=== PATIENT | female | born 1955 | race Caucasian/White ===

== ENCOUNTER 2018-07-07 06:14 | Inpatient (IN) ==
--- NOTE | 2018-06-17 09:25 | ANES ---
Anesthesia Pre Procedure Eval HOME MEDICATIONS Acetaminophen [Tylenol] 650 mg PO QID PRN #0 tab 12/25/15 [Last Taken Unknown] cholecalciferol (vitamin D3) 2,000 unit capsule 2,000 unit PO DAILY 11/05/17 [Last Taken Unknown] sumatriptan 100 mg tablet 100 mg PO DAILY PRN #9 tab 11/10/17 [Last Taken Unknown] trazodone 100 mg tablet 200 mg PO HS #60 tab 04/13/18 [Last Taken Unknown] diltiazem ER 240 mg capsule,24 hr,extended release 240 mg PO DAILY 04/22/18 [Last Taken Unknown] tramadol 50 mg tablet See Rx Instructions PO Q6H PRN #90 tab 04/27/18 [Last Taken Unknown] enalapril 10 mg-hydrochlorothiazide 25 mg tablet 1 tab PO DAILY #90 tab 05/07/18 [Last Taken Unknown] triamcinolone acetonide 0.5 % topical ointment 1 applic TP DAILY #15 g 05/20/18 [Last Taken Unknown] tramadol 50 mg tablet See Rx Instructions PO Q6H PRN #90 tab 06/01/18 [Last Taken Unknown] Estrogens, Conjugated [Premarin] 1 gm VAGINAL .COM 06/17/18 [Last Taken Unknown] Allergies/Adverse Reactions: Allergies Allergy/AdvReac Type Severity Reaction Status Date / Time bacitracin zinc AdvReac Mild rash Verified 06/17/18 08:24 [From Triple Antibiotic] Metronidazole HCl AdvReac Mild Nausea Verified 06/17/18 08:24 [From Flagyl] Troleandomycin [From Tank] AdvReac Mild rash Verified 06/17/18 08:24 - Planned Procedure Planned Procedure: Left Total Knee Arthroplasty Medication List Reviewed:: Yes Allergies Verified: Yes Medical History (Updated 06/01/18 @ 10:58 by Lavon Watson MD) Abdominal pain Onset Date: ~11/14/11 Bunion Onset Date: ~01/01/13 and hammertoe formation, right foot Cough Onset Date: ~02/06/12 Depression Onset Date: ~06/18/13 Deviated nasal septum Onset Date: Unknown Diverticulitis Onset Date: Unknown Fibromyalgia Onset Date: Unknown GERD (gastroesophageal reflux disease) Onset Date: Unknown Hematuria Onset Date: ~01/03/14 Hypertension Onset Date: Unknown Low back pain Onset Date: ~03/13/11 chronic Malignant neoplasm of thyroid gland Onset Date: Unknown removal Migraine Onset Date: Unknown Otitis media Onset Date: ~09/10/12 Rib fracture Onset Date: ~08/04/14 Sinusitis Onset Date: ~01/15/12 Small vessel disease Onset Date: ~02/2018 heart- sees dr at [facility] Surgical History (Updated 11/04/17 @ 10:58 by Nisha Morris RN) H/O adenoidectomy Onset Date: ~1959 H/O arthroscopic knee surgery Onset Date: Unknown left H/O dilation and curettage Onset Date: ~12/07/08 12/07/2008, 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 No pathologic findings H/O foot surgery Onset Date: ~2011 bilateral bunion repair H/O laparoscopy Onset Date: ~12/07/08 H/O nasal septoplasty Onset Date: ~2005 History of cholecystectomy Onset Date: ~2000 History of colonoscopy Onset Date: ~2012 History of fundoplication Onset Date: ~2000 History of hysteroscopy Onset Date: ~12/07/08 12/07/2008, 11/01/2015 History of repair of hiatal hernia Onset Date: ~2000 History of salpingo-oophorectomy Onset Date: ~12/07/08 left History of tonsillectomy Onset Date: ~1959 Family History (Updated 11/04/17 @ 11:00 by Nisha Morris RN) Father Hypertension Cancer throat Mother CVA (cerebral vascular accident) Hypertension - Family Anesthesia History Family History:: no untoward family reactions to anesthesia, no familial bleeding tendencies, no family history of clotting disorders, no family history of premature - Airway/Neck/Teeth Teeth Condition: none Denture Type: Full upper, Full lower Neck Exam: full range of motion Mallampatti Score: 2 Thyromental (T-M) distance: > 6 cm Mandibulo Hyoid distance: > 3 cm - Respiratory Respiratory Physical: lungs clear Smoking Status: Never smoker Sleep Apnea currently treated: No Sleep Apnea by current assessment: No - Cardiovascular Cardiac History: hypertension Tolerate Activity: Fair Heart Sounds: S1 & S2, Regular - Anesthesia Assessment and Plan ASA Class: PS, II Anesthesia Type Plan: Block - adductor canal block for post op pain relief, Spinal
[~2018-07-07 06:14] MED LIST: ROPIVACAINE HCL/PF 100 MG, EPINEPHrine 0.2 MG, KETOROLAC TROMETHAMINE 30 MG in NORMAL S... IJ PRN; TRANEXAMIC ACID 1,000 MG in NORMAL SALINE 100 ML IV PRN; VANCOMYCIN HCL 1 GM in DEXTROSE 5 % IN WATER 250 ML IV PRN; ceFAZolin SODIUM 1 GM VIAL IV PRN
[2018-07-07] MEDS: RINGER'S SOLUTION,LACTATED 1,000 ML IV PRN ×3 (07:17→10:15)
[2018-07-07] MEDS ORDERED: ONDANSETRON HCL/PF 2 MG/ML VIAL IV PRN (10:00)
[2018-07-07] MEDS ORDERED: MAGNESIUM HYDROXIDE 30 ML UDC PO PRN (10:00)
[2018-07-07] MEDS ORDERED: oxyCODONE HCL/ACETAMINOPHEN 1 TAB TABLET PO PRN (10:00)
[2018-07-07] MEDS ORDERED: ACETAMINOPHEN 500 MG TABLET PO PRN (10:00)
[2018-07-07] MEDS ORDERED: MAG HYDROX/ALUMINUM HYD/SIMETH 30 ML UDC PO PRN (10:00)
[2018-07-07] MEDS ORDERED: diphenhydrAMINE HCL 50 MG/ML VIAL IV PRN (10:00)
[2018-07-07] MEDS ORDERED: SUMAtriptan SUCCINATE 50 MG TABLET PO PRN (10:05)
--- NOTE | 2018-07-07 10:10 | OR ---
Operative Report - Dictated Report Narrative: Date: 07/07/2018 Preoperative diagnosis: Left knee arthritis Postoperative diagnosis: Left knee arthritis Procedure: Left total knee arthroplasty. Surgeon: Lavon Watson M.D. Belt Back Operator: Isiah Nickerson PA-C Anesthesia: Spinal with regional block and local periarticular joint injection. Complications: None Specimens: Resected bone Estimated blood loss: Minimal. Tourniquet time: 70 Minutes at 300 millimeters of mercury. Retained implants: Depuy Attune size 6 standard lugged cemented posterior stabilized femoral component. Size 6 rotating cemented tibial platform. 6 by 7 millimeter posterior stabilized cross-linked tibial insert. 38 millimeter medialized patella button. Indications: Fatemeh is a 63-year-old female community ambulator. This patient was followed in my clinic for period of time with significant complaints of left knee pain consistent with arthritic changes. They had failed conservative measures including but not limited to activity modification, passage of time, medications, and other conservative measures. Patient wished to proceed with surgical treatment. The risks, benefits, and alternatives were discussed in clinic. The risks of , blood clots, bleeding, infection, nerve/tendon blood vessel/ injury, malposition of components, intraoperative fracture, postoperative limited range of motion, persistent pain, failure of components, and need for additional procedures. Patient wished to proceed consent was obtained after answering all questions. Procedure: After marking the correct extremity on the floor, the patient was taken to the operating room. A timeout was performed. IV antibiotics consis ting of 1 g of vancomycin and 1 g of Ancef were administered prior to the procedure. A regional followed by spinal anesthetic was induced by anesthesia. on the operative table with all bony prominences well-padded. May catheter was placed and a bump was placed under the operative side buttock. SCDs and ALETA hose were utilized on the nonoperative leg. A well-padded tourniquet was applied to the operative thigh. The operative leg was then pre-scrubbed with alcohol prepped and draped in a standard sterile fashion. After exsanguinating the extremity with an Esmarch bandage, the tourniquet was inflated. After marking out the anterior knee for standard incision centered over the patella, the skin was incised and dissected down to the joint retinaculum. The joint retinaculum was marked out as well as the horizontal axis of the patella, and a standard medial parapatellar arthrotomy was then made. The most proximal aspect of the quadriceps tendon and the patella tendon insertion were protected from release. A partial synovectomy was performed as well as a resection of the infrapatellar fat pad. The distal femoral fat pad proximal to the trochlea was also resected using cautery. The soft tissues were elevated off the medial aspect of the proximal tibia using a Cesar elevator ensuring that we did not transect the medial collateral ligament. Upon initial evaluation range of mo tion was approximately 0 degrees to 125 degrees of flexion. There were signs of advanced arthrosis in all 3 joint spaces. There were large marginal osteophytes which were removed with a rongeur. The knee was hyperflexed and the patella was tucked laterally. Protecting the surrounding soft tissues with Homans, an entry drill was placed down the femoral canal using Whitesides line for guidance into the entry point. The intramedullary femoral alignment naina was utilized in order to cut the distal femur in 5 of valgus resecting 10 millimeters of bone. Next the distal femur was sized to a size 6. An anterior referencing guide was utilized to place the distal femoral cutting block in 7 of external rotation due to notable lateral femoral condyle hypoplasia. This was pinned into place. The rotation was confirmed both visually and based on anatomic landmarks. The 4 in 1 cutting jig of the appropriate size was utilized in order to make all bony cuts. Retractors were utilized in order to protect surrounding soft tissues. This cut did not result in any excessive notching. We then cut the box centered over the distal femur. This allowed for resection of the anterior and posterior cruciate ligaments. I then turned my attention to the preparation of the tibia. Using an extra medullary tibial alignment naina, 5 millimeters of bone was resected off the medial articular surface. This was made perpendicular to the mechanical axis of the joint with the alignment naina centered over the ankle mortise. The alignment naina was parallel to the mechanical axis, centered over the medial one third of the tibial tubercle, paralleling the anterior surface of the tibia. We then turned our attention to the remaining meniscus and soft tissues. These were removed while protecting the surrounding ligaments and soft tissues. The marginal osteophytes off the anterior, posterior, medial, lateral aspects of the femur and tibia were removed. The tibia was sized out to a size 6. Next the tibia was drilled and punched in an externally rotated position as confirmed with a drop naina. Next the trial femur and a series of tibial inserts were utilized in order to allow for full extension and maximal flexion. It was found that a 7 millimeter insert gave the best range of motion and stability at multiple flexion points as well as at full extension there was less than 2 mm of gapping both medially and laterally. There is minimal anterior translation with the knee at 90 of flexion and no signs of being able to dislocate the knee. The patella was then prepared. The initial thickness was 24 millimeters. This was reamed down to 14 millimeters parallel to the anterior surface of the patella. It was sized out to a size 38 mm medialized patella button. This was then drilled and trialed. Without any medial restraint the patella tracked appropriately and did not sublux or dislocate. At this point, it was felt these were the appropriate sized implants and all trials were removed. The standard periarticular joint injection consisting of ropivacaine, Toradol, and epinephrine were injected into the periarticular joint tissues. The bony surfaces were thoroughly irrigated with a pulsatile-suction saline irrigation device. A bone plug from the prior resected anterior chamfer cut was placed into the drill hole at the distal femur. The bony surfaces were then dried in preparation for placement of the implants. The cement was vacuum mixed per the combiner's instructions. The cement was placed on the dry bony surfaces and posterior aspect of the implants. The implants were impacted into place, removing all extruded cement. At this point anesthesia administered tranexamic acid per protocol intravenously. The knee was placed in extension with axial loading with the trial insert while the cement cured. A dilute 0.35% betadyne-saline solution was used to irrigate the knee and allowed to sit in the knee while the cement cured. Once the cement cured, all remaining extruded cement was removed. The knee was placed through a range of motion with the trial insert to ensure appropriate range of motion and stability. Final range of motion was approximately 0 to 130 degrees. The knee was again thoroughly irrigated with pulsatile saline lavage. The final polyethylene insert was then impacted into place ensuring no retained soft tissues. The remaining periarticular joint injection was injected. The knee was then packed with lap sponges which were soaked with dilute betadyne solution and the tourniquet was let down. Pressure was held for approximately 2 minutes and then hemostasis was obtained using electrocautery to coagulate any bleeding vessels. The knee was then placed over a triangle and the arthrotomy was closed with interrupted #1 Vicryl after thoroughly irrigating the joint. The deep and subcutaneous tissues were closed with interrupted oh and 3-0 Vicryl respectively. Skin was closed with a running subcutaneous 3-0 Monocryl and jay. Xeroform, 4 x 4's, ABD, Sof-Rol, and a full leg Dale wrap were applied. All sponge, needle, blade, and instrument counts were correct prior to closing the wounds. Postoperative condition: The patient was awoken and transferred to the postanesthesia care unit in stable condition. Plan is to be admitted to the inpatient medical/surgical floor postoperatively for 24 hours of IV antibiotics, physical therapy, occupational therapy, and medical co-management. Patient will be weightbearing as tolerated with range of motion as tolerated. DVT prophylaxis will be with SCDs, ALETA hose, and pharmacological anticoagulation. Anticipated hospital stay is approximately 2-4 days.
[2018-07-07] MEDS: NORMAL SALINE 1,000 ML IV PRN ×3 (11:08→20:46)
--- NOTE | 2018-07-07 12:04 | ANES ---
Post Anesthesia Discharge - Transfer of Care Transfer of Care handoff given to nurse: Yes - Discharge from PACU Discharge from PACU when meets criteria: Yes
--- NOTE | 2018-07-07 12:04 | ANES ---
Post Anesthesia Assessment - Vital Signs Vitals: Last Vital Signs Temp 36.2 C 07/07/18 11:20 Pulse 58 L 07/07/18 11:49 Resp 16 07/07/18 11:49 BP 96/58 07/07/18 11:49 Pulse Ox 100 07/07/18 11:49 Airway Patency: Normal - Mental Status Level Of Consciousness: Awake - Pain Level Pain Score: 0 - N/V Assessment Nausea/Vomiting Presence: None Dehydration:: No
--- NOTE | 2018-07-07 12:18 | ANES ---
Anesthesia Procedure Note Procedure Note: ANESTHESIA PROCEDURE NOTE Date of procedure: 07/07/2018. Time of procedure: 07 50. Performed by: Ruben Lucero CRNA Block Sealer: Ragini Osuna RN . Preprocedure diagnosis: Left knee DJD. Desire for postoperative analgesia. Post procedure diagnosis: Same. Procedure: Ultrasound-guided left adductor canal block Indications: Postoperative analgesia. Findings: Patient was brought to operating room #4 and placed in a supine position. Patient was sedated. Patient's left inner thigh was prepped with ChloraPrep. Ultrasound was utilized to identify the adductor canal. A 20-gauge 4 inch regional block needle was advanced under ultrasound guidance until tip of needle was positioned in the adductor canal. 25 mL of 0.25% Marcaine with epinephrine 1-200,000 was injected with adequate spread of local anesthesia noted around the saphenous nerve. Regional block needle was removed intact. EBL: Minimal. Fluids: N/A. Specimen: N/A. Post procedure condition: The patient tolerated the procedure well. No complications were noted. Thank you for this consultation Ruben Lucero CRNA
[2018-07-07] MEDS: oxyCODONE HCL/ACETAMINOPHEN 1 TAB TABLET PO PRN ×3 (14:02→22:42)
[2018-07-07] MEDS: ceFAZolin SODIUM 2 GM in DEXTROSE 5 % IN WATER 50 ML IV SCH ×4 (14:06→22:35)
[2018-07-07] MEDS: MORPHINE SULFATE 2 MG/ML DISP.SYRIN IV PRN (16:13)
[2018-07-07] MEDS: SENNOSIDES/DOCUSATE SODIUM 1 TAB TABLET PO SCH (20:47)
[2018-07-07] MEDS: traZODone HCL 50 MG TABLET PO SCH (20:47)
[2018-07-08] MEDS: MORPHINE SULFATE 2 MG/ML DISP.SYRIN IV PRN (00:30)
[2018-07-08] MEDS: oxyCODONE HCL/ACETAMINOPHEN 1 TAB TABLET PO PRN ×5 (02:40→23:29)
[2018-07-08] MEDS: ceFAZolin SODIUM 2 GM in DEXTROSE 5 % IN WATER 50 ML IV SCH ×2 (05:33)
[2018-07-08 05:37] LABS: Hematocrit 32.4 % (37.0-47.0); Hemoglobin 10.5 gm/dL (12.5-16.0); Mean Cell Volume 98.2 fl (78-100); Mean Corpuscular Hemoglobin 31.8 pg (27-31); Mean Corpuscular Hgb Conc 32.4 g/dl (32-36); Mean Platelet Volume 8.9 fl (8-12.5); Platelet Count 198 K/mm3 (150-450); Red Cell Distribution Width 14.1 % (11.5-14.0); White Blood Count 7.4 K/mm3 (4.0-10.5)
[2018-07-08 05:48] LABS: Anion Gap 9.2 mmol/L (6.8-13.8); BUN/Creatinine Ratio 12.9 (9.0-21.6); Calcium * 8.5 mg/dL (7.9-10.9); Carbon Dioxide 28.6 mmol/L (24-32.6); Estimated Creat Clear 56.8; Potassium 3.8 mmol/L (3.4-4.6)
[2018-07-08] MEDS: ENOXAPARIN SODIUM 40 MG/0.4 ML SYRG SC SCH (09:17)
[2018-07-08] MEDS: ENALAPRIL MALEATE 5 MG TABLET PO SCH (09:17)
[2018-07-08] MEDS: HYDROCHLOROTHIAZIDE 25 MG TABLET PO SCH (09:18)
[2018-07-08] MEDS: DILTIAZEM HCL 240 MG CAP.SR.24H PO SCH (09:18)
[2018-07-08] MEDS: CHOLECALCIFEROL 1,000 UNIT CAPSULE PO SCH (09:18)
--- NOTE | 2018-07-08 13:08 | PN ---
Subjective - Date and Time Seen Date: 07/08/18 Time: 07:30 Subjective Narrative: Patient reports no acute events. She notes she still has moderate pain, rates it a 7/10. She does note that her Percocet improves the pain. She notes she has been up out bed to chair at this point. She is tolerating p.o. diet without any other acute symptoms. Objective - Vitals Vitals: Last Vital Signs Temp 36.8 C 07/08/18 10:47 Pulse 83 07/08/18 10:47 Resp 16 07/08/18 10:47 BP 125/53 07/08/18 10:47 Pulse Ox 95 07/08/18 10:47 - Abnormal Lab Findings Abnormal Lab Findings: Abnormal Lab Results 07/08/18 07/08/18 Range/Units 05:33 05:33 RBC 3.30 L (4.2-5.4) M/mm3 Hgb 10.5 L (12.5-16.0) gm/dL Hct 32.4 L (37.0-47.0) % MCH 31.8 H (27-31) pg RDW 14.1 H (11.5-14.0) % Random Glucose 111 H (70-110) mg/dL - Exam Constitutional: Present: Alert, Cooperative, No distress Respiratory: Present: no respiratory distress Extremity: Present: other - LLE--> bandages clean/dry/intact, distal capillary refill brisk, sensation intact light touch, diffuse left knee tenderness, 5/5 plantarflexion and dorsiflexion of the ankle Eye contact: Present: cooperative Thoughts: Present: normal thought pattern Cauti Physician Documentation - Urinary Catheter Management Urethral (May) Date of Insertion: 07/07/18 Time of Insertion: 08:10 Date of Removal: 07/08/18 Time of Removal: 07:30 Assessment/Plan Plan Narrative: -63 y/o female postop day 1 status post left total knee arthroplasty -weightbearing as tolerated, assistive device PRN -PT/OT advance as tolerated -P.o. pain medication PRN -P.o. diet as tolerated -Hemoglobin 10.5 continue to monitor -DVT prophylaxis Lovenox, SCDs in bed, ALETA hose knee-high -Disposition: Once all PT goals met, return to p.o. diet, p.o. pain medication with pain well-controlled are met patient will be discharged to the [facility] nursing facility for further care - Problems/Diagnosis (1) Status post total left knee replacement Problem: Acute
[2018-07-08] MEDS: traZODone HCL 50 MG TABLET PO SCH (20:47)
[2018-07-08] MEDS: SENNOSIDES/DOCUSATE SODIUM 1 TAB TABLET PO SCH (20:47)
[2018-07-09] MEDS: oxyCODONE HCL/ACETAMINOPHEN 1 TAB TABLET PO PRN ×5 (04:13→22:52)
[2018-07-09 05:13] LABS: Hematocrit 31.5 % (37.0-47.0); Hemoglobin 10.1 gm/dL (12.5-16.0); Mean Corpuscular Hemoglobin 32.1 pg (27-31); Mean Corpuscular Hgb Conc 32.1 g/dl (32-36); Mean Platelet Volume 8.8 fl (8-12.5); Platelet Count 187 K/mm3 (150-450); Red Blood Count 3.15 M/mm3 (4.2-5.4); Red Cell Distribution Width 14.4 % (11.5-14.0); White Blood Count 10.5 K/mm3 (4.0-10.5)
[2018-07-09 05:32] LABS: Anion Gap 13.1 mmol/L (6.8-13.8); BUN/Creatinine Ratio 9.3 (9.0-21.6); Calcium * 8.7 mg/dL (7.9-10.9); Carbon Dioxide 25.5 mmol/L (24-32.6); Estimated Creat Clear 48.9; Potassium 3.6 mmol/L (3.4-4.6)
[2018-07-09] MEDS: DILTIAZEM HCL 240 MG CAP.SR.24H PO SCH (08:59)
[2018-07-09] MEDS: HYDROCHLOROTHIAZIDE 25 MG TABLET PO SCH (08:59)
[2018-07-09] MEDS: ENOXAPARIN SODIUM 40 MG/0.4 ML SYRG SC SCH (08:59)
[2018-07-09] MEDS: CHOLECALCIFEROL 1,000 UNIT CAPSULE PO SCH (08:59)
[2018-07-09] MEDS: ENALAPRIL MALEATE 5 MG TABLET PO SCH (09:00)
--- NOTE | 2018-07-09 10:04 | PN ---
Subjective - Date and Time Seen Date: 07/09/18 Time: 10:01 Subjective Narrative: No events overnight. Rates pain 6/10 this morning. Making progress with PT. Objective - Vitals Vitals: Last Vital Signs Temp 37.4 C 07/09/18 06:31 Pulse 94 07/09/18 09:00 Resp 15 07/09/18 06:31 BP 106/42 07/09/18 09:00 Pulse Ox 94 07/09/18 06:31 - Abnormal Lab Findings Abnormal Lab Findings: Abnormal Lab Results 07/09/18 07/09/18 Range/Units 05:10 05:10 RBC 3.15 L (4.2-5.4) M/mm3 Hgb 10.1 L (12.5-16.0) gm/dL Hct 31.5 L (37.0-47.0) % MCH 32.1 H (27-31) pg RDW 14.4 H (11.5-14.0) % Plasma Sodium 143 H (130-142) mmol/L Chloride 107 H (97-106) mmol/L Est GFR (Non-Af Amer) 54 L (60-130) mL/min Random Glucose 138 H (70-110) mg/dL - Exam Exam Narrative: Gen: A&Ox3, NAD CV: RRR Resp: breathing nonlabored on RA MSK: Prineo dressing intact, reinforced with more dermabond today, no erythema or drainage, SILT, distal cap refill brisk Cauti Physician Documentation - Urinary Catheter Management Urethral (May) Date of Insertion: 07/07/18 Time of Insertion: 08:10 Date of Removal: 07/08/18 Time of Removal: 07:30 Assessment/Plan Plan Narrative: 63 y/o female status post left total knee arthroplasty, POD #2. -weightbearing as tolerated, assistive device PRN -PT/OT advance as tolerated -P.o. pain medication PRN -P.o. diet as tolerated -Hemoglobin 10.1 continue to monitor -DVT prophylaxis Lovenox, SCDs in bed, ALETA hose thigh-high -Disposition: Plan for discharge to the [facility] tomorrow
[2018-07-09] MEDS: SENNOSIDES/DOCUSATE SODIUM 1 TAB TABLET PO SCH (20:29)
[2018-07-09] MEDS: traZODone HCL 50 MG TABLET PO SCH (20:30)
[2018-07-10] MEDS: oxyCODONE HCL/ACETAMINOPHEN 1 TAB TABLET PO PRN ×2 (04:23→08:35)
[2018-07-10] MEDS: CHOLECALCIFEROL 1,000 UNIT CAPSULE PO SCH (08:02)
[2018-07-10] MEDS: DILTIAZEM HCL 240 MG CAP.SR.24H PO SCH (08:02)
[2018-07-10] MEDS: HYDROCHLOROTHIAZIDE 25 MG TABLET PO SCH (08:02)
[2018-07-10] MEDS: ENALAPRIL MALEATE 5 MG TABLET PO SCH (08:02)
[2018-07-10] MEDS: ENOXAPARIN SODIUM 40 MG/0.4 ML SYRG SC SCH (08:03)
--- NOTE | 2018-07-10 09:52 | DS ---
Description of Stay: Fatemeh was taken to the OR on 07/07/16 for left total knee arthroplasty. She tolerated the procedure well and there were no complications. She was admitted to the floor postoperatively. Vitals and labs were followed and remained stable. Pain was controlled with oral and IV medications. She resumed a normal diet and normal bladder and bowel function. She made appropriate gains with PT. She was deemed stable for discharge to a [facility] facility on 07/10/18. Procedures Performed: see notes below List Procedures: Left total knee arthroplasty - 07/07/16 Results and Findings: Lab Pending Results 07/07/18 09:33: Pathology Specimen Spec to path 07/08/18 05:33: WBC 7.4, RBC 3.30 L, Hgb 10.5 L, Hct 32.4 L, MCV 98.2, MCH 31.8 H, MCHC 32.4, RDW 14.1 H, Plt Count 198, MPV 8.9 07/08/18 05:33: Sodium 138, Plasma Sodium 138, Potassium 3.8, Chloride 104, Carbon Dioxide 28.6, Anion Gap 9.2, BUN 12, Creatinine 0.93, Est GFR (Non-Af Amer) 64, BUN/Creatinine Ratio 12.9, Random Glucose 111 H, Calcium 8.5 07/09/18 05:10: WBC 10.5 D, RBC 3.15 L, Hgb 10.1 L, Hct 31.5 L, MCV 100.0, MCH 32.1 H, MCHC 32.1, RDW 14.4 H, Plt Count 187, MPV 8.8 07/09/18 05:10: Sodium 142, Plasma Sodium 143 H, Potassium 3.6, Chloride 107 H, Carbon Dioxide 25.5, Anion Gap 13.1, BUN 10, Creatinine 1.08, Est GFR (Non-Af Amer) 54 L, BUN/Creatinine Ratio 9.3, Random Glucose 138 H, Calcium 8.7 Discharge Location: [facility] [place] Disposition: SNF Condition: Good Discharge Activity: Activity as tolerated Discharge Diet: General/regular food Half-Way Therapy: Physicial Therapy Referrals: Carmela Dyson MD [Primary Care Provider] - Additional Patient Instructions (free text): To [facility] for PT and OT to evaluate and treat,. Follow up Orthopedic office appt. on Friday07/22/18 at 9:00am. Weightbearing as tolerated, assistive device PRN -PT/OT advance as tolerated Orthopedic Discharge Instructions: 1. WBAT, ROM as tolerated. 2. PT for ROM, progressive strengthening and mobility. 3. Oral pain meds. 4. Inspect Prineo mesh dressing twice daily to make sure it remains sealed and there is no wound drainage. If the dressing is peeling up or if there is drainage, please contact the Orthopedic clinic. Patient may shower as long as dressing is intact. 5. DVT ppx: Lovenox for 8 days followed by 325 mg ASA daily for 6 weeks. 6.Dave hose for 6 weeks. 7. Ice Machine as tolerated when sedentary, at least 4 hours a day, no maximum time 8. CPM 0-70 degrees flexion, progress as tolerated up to 110 degrees increasing 10 degree daily as tolerated, use 3 times a day for 1-2 hours at a time, may use longer periods or more often pending patients comfort Prescriptions (Any new or edited meds): Enoxaparin Sodium [Lovenox] 40 mg SQ DAILY #8 ml Enoxaparin Sodium [Lovenox] 40 mg SC Q24H #8 disp.syrin oxyCODONE HCL/ACETAMINOPHEN [Percocet 5 MG/325 MG] 1 - 2 tab PO Q4H PRN #90 tab PRN Reason: Severe Pain (Pain Scale 7-10) Sennosides/Docusate Sodium [Senokot-S] 2 tab PO DAILY #30 tab Complete Home Medications List: Complete Home Medication List: Acetaminophen [Tylenol] 650 mg PO QID PRN #0 tab 12/25/15 cholecalciferol (vitamin D3) 2,000 unit capsule 2,000 unit PO DAILY 11/05/17 sumatriptan 100 mg tablet 100 mg PO DAILY PRN #9 tab 11/10/17 trazodone 100 mg tablet 200 mg PO HS #60 tab 04/13/18 diltiazem ER 240 mg capsule,24 hr,extended release 240 mg PO DAILY 04/22/18 enalapril 10 mg-hydrochlorothiazide 25 mg tablet 1 tab PO DAILY #90 tab 05/07/18 triamcinolone acetonide 0.5 % topical ointment 1 applic TP DAILY #15 g 05/20/18 Estrogens, Conjugated [Premarin] 1 gm VAGINAL .COM 06/17/18 mupirocin 2 % topical ointment See Rx Instructions TP .COMPLEX #15 g 06/18/18 Acetaminophen [Tylenol] 1,000 mg PO Q6H PRN tab 07/10/18 Enalapril Maleate [Vasotec] 10 mg PO DAILY tab 07/10/18 Enoxaparin Sodium [Lovenox] 40 mg SC Q24H #8 disp.syrin 07/10/18 Enoxaparin Sodium [Lovenox] 40 mg SQ DAILY #8 ml 07/10/18 Hydrochlorothiazide [Hydrodiuril] 25 mg PO DAILY tab 07/10/18 Sennosides/Docusate Sodium [Senokot-S] 2 tab PO DAILY #30 tab 07/10/18 oxyCODONE HCL/ACETAMINOPHEN [Percocet 5 MG/325 MG] 1 - 2 tab PO Q4H PRN #90 tab 07/10/18
[2018-07-10 10:26] VITALS: BP 147/67
== END 2018-07-10 10:35 | DRG 470 ==
LOC: MS 06:14 → EDSTATUS 08:00
PROVIDERS: ADMIT Orthopaedic Surgery; ATTEND Orthopaedic Surgery
CPT/HCPCS: 36415; 73560; 80048; 85027; 88305; 88311; 97110; 97116; 97161; 97165; 97535

== ENCOUNTER 2020-02-07 08:00 | Inpatient (IN) ==
[~2020-02-07 08:00] MED LIST changes: +BUPIVACAINE HCL 50 ML VIAL IJ PRN; +RINGER'S SOLUTION,LACTATED 1,000 ML IV PRN; -ROPIVACAINE HCL/PF 100 MG, EPINEPHrine 0.2 MG, KETOROLAC TROMETHAMINE 30 MG in NORMAL S... IJ PRN; -TRANEXAMIC ACID 1,000 MG in NORMAL SALINE 100 ML IV PRN; -VANCOMYCIN HCL 1 GM in DEXTROSE 5 % IN WATER 250 ML IV PRN; -ceFAZolin SODIUM 1 GM VIAL IV PRN
--- NOTE | 2020-02-07 08:31 | ERNOTE ---
Medical Problem HPI - General Chief Complaint: General Assessment Time Seen by Provider: 02/07/20 08:15 Source: patient Exam Limitations: no limitations - Immun/Allergies/Home Medications Immunizations: IMMUNIZATION HX Immunizations Up to Date Yes History of Influenza Vaccine Yes Hx Pneumococcal Vaccination Yes Allergies/Adverse Reactions: Allergies bacitracin zinc [From Triple Antibiotic] Allergy (Mild, Verified 02/07/20 08:09) rash Troleandomycin [From Tank] Allergy (Mild, Verified 02/07/20 08:09) rash Metronidazole HCl [From Flagyl] Adverse Reaction (Mild, Verified 02/07/20 08:09) Nausea Saccharomyces boulardii [From Florastor] Adverse Reaction (Mild, Verified 02/07/20 08:09) rash Can tolerate yogurt or bacid. Home Medications: HOME MEDICATIONS cholecalciferol (vitamin D3) 50 mcg (2,000 unit) capsule 2,000 unit PO DAILY 11/05/17 [Last Taken Unknown] sumatriptan succinate 100 mg tablet 100 mg PO DAILY PRN #9 tab 11/10/17 [Last Taken Unknown] triamcinolone acetonide 0.5 % topical ointment 1 applic TP DAILY #15 g 05/20/18 [Last Taken Unknown] Estrogens, Conjugated [Premarin] 1 gm VAGINAL .COM 06/17/18 [Last Taken Unknown] Acetaminophen [Tylenol] 1,000 mg PO Q6H PRN tab 07/10/18 [Last Taken Unknown] sennosides 8.6 mg-docusate sodium 50 mg tablet 2 tab PO DAILY PRN tab 01/11/19 [Last Taken Unknown] calcium carbonate 500 mg calcium (1,250 mg) tablet 500 mg PO DAILY 02/22/19 [Last Taken Unknown] traMADol HCL [Ultram] 50 mg PO QID PRN #30 tab 08/06/19 [Last Taken Unknown] albuterol sulfate 90 mcg/actuation aerosol inhaler 2 inh IH Q6H PRN #8.5 g 08/11/19 [Last Taken Unknown] diltiazem HCl 240 mg capsule,24 hr,extended release 240 mg PO DAILY #90 cap 08/23/19 [Last Taken Unknown] fremanezumab-vfrm 225 mg/1.5 mL subcutaneous syringe 225 mg SUBCUT QMONTH 09/21/19 [Last Taken Unknown] misoprostol 100 mcg tablet 100 mcg PO BID #14 tab 10/20/19 [Last Taken 11/04/19 20:00] trazodone 100 mg tablet 200 mg PO HS #60 tab 11/12/19 [Last Taken Unknown] topiramate 100 mg tablet 100 mg PO HS 11/22/19 [Last Taken Unknown] enalapril 10 mg-hydrochlorothiazide 25 mg tablet See Rx Instructions .ROUTE .COMPLEX #90 tab 12/29/19 [Last Taken Unknown] fluconazole 150 mg tablet 150 mg PO Q3D 0 Days #2 tab 01/14/20 [Last Taken Unknown] miconazole nitrate 2 % topical cream 1 applic TP BID #30 g 01/14/20 [Last Taken Unknown] Albuterol Sulfate [Proair Hfa] 2 puff IH Q4H PRN #1 inhaler 01/31/20 [Last Taken Unknown] Amox Tr/Potassium Clavulanate [Augmentin 875-125 Tablet] 875 mg PO Q12H #20 tab 01/31/20 [Last Taken Unknown] solifenacin 5 mg tablet 5 mg PO DAILY 90 Days #90 tab 02/03/20 [Last Taken Unknown] - History of Present History Narrative: Patient states she has had diarrhea for a little bit over a week. She states last week she was diagnosed with bronchitis and UTI and placed on Augmentin. She is concerned she may have C. difficile as she has had a previously. She states she began to have diarrhea the day before she started on the Augmentin. She also believes she is dehydrated and she has a migraine today. Timing: constant Severity: moderate Review of Systems - Review of Systems Constitutional: Present: See HPI, recent illness. Absent: fever EYE: Absent: vision changes ENT: Absent: nose congestion, nasal drainage Respiratory: Absent: shortness of breath, cough Cardiology: Absent: chest pain, palpitations Gastrointestinal/Abdominal: Present: See HPI, diarrhea, constipation - previous to this.. Absent: nausea, vomiting Genitourinary: Absent: frequency, dysuria Musculoskeletal: Absent: back pain, muscle pain Skin: Absent: rash Neurological: Absent: numbness, tingling Endocrine: Absent: excessive sweating Medical History (Last Reviewed 02/07/20 @ 08:30 by Eron Brandon DO) Abdominal pain Onset Date: ~11/14/11 Arthritis Onset Date: Unknown left knee Bunion Onset Date: ~01/01/13 and hammertoe formation, right foot Cough Onset Date: ~02/06/12 Depression Onset Date: ~06/18/13 Deviated nasal septum Onset Date: Unknown Diverticulitis Onset Date: Unknown Fibromyalgia Onset Date: Unknown GERD (gastroesophageal reflux disease) Onset Date: Unknown Hematuria Onset Date: ~01/03/14 History of endometrial biopsy Onset Date: 10/07/19 Hypertension Onset Date: Unknown Low back pain Onset Date: ~03/13/11 chronic Malignant neoplasm of thyroid gland Onset Date: Unknown removal Migraine Onset Date: Unknown Otitis media Onset Date: ~09/10/12 Rib fracture Onset Date: ~08/04/14 Sinusitis Onset Date: ~01/15/12 Small vessel disease Onset Date: ~02/2018 heart- sees dr at [facility] Surgical History: Surgical History (Last Reviewed 02/07/20 @ 08:30 by Eron Brandon DO) H/O adenoidectomy Onset Date: ~1959 H/O arthroscopic knee surgery Onset Date: Unknown left H/O dilation and curettage Onset Date: ~12/07/08 12/07/2008, 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 No pathologic findings H/O foot surgery Onset Date: ~2011 bilateral bunion repair H/O laparoscopy Onset Date: ~12/07/08 H/O nasal septoplasty Onset Date: ~2005 History of cholecystectomy Onset Date: ~2000 History of colonoscopy Onset Date: ~2012 History of fundoplication Onset Date: ~2000 History of hysteroscopy Onset Date: ~12/07/08 12/07/2008, 11/01/2015 History of repair of hiatal hernia Onset Date: ~2000 History of salpingo-oophorectomy Onset Date: ~12/07/08 left History of tonsillectomy Onset Date: ~1959 History of arthroplasty of left knee Onset Date: ~07/07/18 Left total knee arthroplasty: Dr. Watson Status post hysteroscopy Onset Date: ~11/05/19 - postmenopausal bleeding, thickened endometrium. - benign pathology Family History: Family History (Last Reviewed 02/07/20 @ 08:30 by Eron Brandon DO) Father Hypertension Cancer throat Mother CVA (cerebral vascular accident) Hypertension Social History: (Last Reviewed 02/07/20 @ 08:30 by AYESHA Lao Social History: adopted: No foster care: No fci: No Marital status: lives independently: No household members: spouse number of children: 3 caregiver/support person: No current occupational status: other Highest level of school completed/degree received: high school graduate Service: No Tobacco: Smoking Status: Former smoker passive smoking exposure: No second hand exposure: Yes Alcohol: alcohol intake: current alcohol intake frequency: holiday/special occasion Substance Use: substance use type: does not use Dietary Habits: caffeine: Yes Type: carbonated beverages Physical Exam - Physical Exam General Appearance: Present: wd/wn, alert, no apparent distress Head Exam: Present: normal inspection, no evidence of injury Neck: Present: normal inspection, nontender Respiratory: Present: no respiratory distress, no accessory muscle use, chest nontender, lungs clear Cardiovascular/Chest: Present: regular rate, rhythm, no murmur Gastrointestinal/Abdominal: Present: normal bowel sounds, nondistended, soft, tenderness - diffuse. Absent: guarding, rebound Back Exam: Absent: normal inspection, normal range of motion Extremity Exam: Absent: normal inspection, normal range of motion, no edema Neurological Exam: Absent: alert, oriented, normal mood/affect Skin Exam: Absent: normal color, warm/dry Lymphatic Exam: Absent: no adenopathy Progress - Results and Orders Patient's Lab Results:: I have reviewed the patient's lab results. Results and Orders: Laboratory Tests 02/07/20 02/07/20 02/07/20 08:15 08:30 08:30 WBC 12.8 H Hgb 13.8 Hct 41.4 Plt Count 387 Sodium 138 Potassium 3.0 L Chloride 101 Anion Gap 12.7 BUN 17 Creatinine 1.24 Random Glucose 89 Calcium 9.5 Total Bilirubin 0.6 AST 33 ALT 45 Albumin 3.5 Amylase 56 Lipase 100 Urine Color Yellow Urine Appearance Clear Urine pH 6.0 Ur Specific [place] 1.020 Urine Glucose (UA) Negative Urine Ketones Negative Urine Blood Negative Urine Nitrate Negative Ur Leukocyte Esterase Negative Urine Culture Comments No culture indicated Laboratory Tests 02/07/20 08:15 Stl C.difficile Tox A&B Negative - Vital Signs Patient's Vital Signs:: I have reviewed the patient's vital signs. Vital Signs: Vital Signs 02/07/20 08:07 Temperature 36.5 C Pulse Rate 100 Respiratory Rate 18 Blood Pressure 117/69 O2 Sat by Pulse Oximetry 96 - X-Ray X-Ray #1 X-Ray: abdomen Interpretation: Reviewed by me X-ray Comments: Findings: Mild stool in the colon is within the realm of normal variability. There are no air-filled dilated loops of bowel to suggest obstruction. No free air identified. There are surgical clips in the right upper quadrant. There are mild degenerative changes to a scoliotic lumbar spine. There are vascular calcifications. IMPRESSION: NO ACUTE ABDOMINAL PATHOLOGY IDENTIFIED. Electronically signed by Miguel Garcia M.D.. Miguel Garcia MD - CT/Ultrasound CT/Ultrasound Narrative: CT abdomen pelvis with IV and oral contrast: IMPRESSION: ACUTE APPENDICITIS. RECOMMEND SURGICAL CONSULTATION. OTHER INCIDENTAL FINDINGS DISCUSSED. Electronically signed by Miguel Garcia M.D.. - Progress/Reassessment Chief Complaint: General Assessment Progress Note-Subjective: 02/07/20 13:[address] Lundberg he will come see the patient in the ER. Departure Clinical Impression: Appendicitis Qualifiers: Appendicitis type: acute appendicitis Acute appendicitis type: unspecified acute appendicitis type Qualified Code(s): K35.80 - Unspecified acute appendicitis - Departure Disposition: Short Term Hospital Inpatient Condition: Good Referrals: Carmela Dyson MD [Primary Care Provider] -
[2020-02-07 08:43] LABS: Hematocrit 41.4 % (37.0-47.0); Hemoglobin 13.8 gm/dL (12.5-16.0); Mean Cell Volume 95.6 fl (78-100); Mean Corpuscular Hemoglobin 31.9 pg (27-31); Mean Corpuscular Hgb Conc 33.3 g/dl (32-36); Mean Platelet Volume 8.5 fl (8-12.5); Neutrophil # 8.6 K/mm3 (1.3-6.0); Neutrophil % 67.3 % (42-75.0); Platelet Count 387 K/mm3 (150-450); Red Blood Count 4.33 M/mm3 (4.2-5.4); Red Cell Distribution Width 13.8 % (11.5-14.0); White Blood Count 12.8 K/mm3 (4.0-10.5)
[2020-02-07 08:44] LABS: Urine Bilirubin Negative (NEGATIVE); Urine Blood Negative /ul (NEGATIVE); Urine Ketone Negative (NEGATIVE); Urine Nitrite Negative (NEGATIVE); Urine Protein Negative (NEGATIVE); Urine Urobilinogen Normal (NORMAL)
[2020-02-07 08:53] LABS: Urine Appearance Clear (CLEAR); Urine Bacteria None Seen; Urine Color Yellow; Urine RBC None Seen /hpf (0-5); Urine WBC TRACE /hpf (0-5)
[2020-02-07 09:00] LABS: Albumin * 3.5 gm/dl (3.4-5.0); Anion Gap 12.7 mmol/L (6.8-13.8); BUN/Creatinine Ratio 13.7 (9.0-21.6); Bilirubin, Total 0.6 mg/dL (0.0-1.1); Ca. Corrected For Albumin 9.6 mg/dL (8.4-10.2); Calcium * 9.5 mg/dL (7.9-10.9); Carbon Dioxide 27.3 mmol/L (24-32.6); Total Protein 7.7 gm/dL (6.2-8.2)
[2020-02-07] MEDS ORDERED: DIATRIZOATE MEGLUMINE, SODIUM 30 ML BTL PO ONE (09:30)
[2020-02-07] MEDS ORDERED: KETOROLAC TROMETHAMINE 30 MG/ML VIAL IV ONE (09:31)
--- NOTE | 2020-02-07 14:46 | HP ---
Chief Complaint - Chief Complaint Date of Service: 02/07/20 Time of Service: 14:45 Chief Complaint: Diarrhea History of Present Illness: She has been on antibiotics for bronchitis. She has had persistent diarrhea and general abdominal discomfort. She was found to have an elevated white blood cell count, abdominal tenderness, and CT scan evidence of acute appendicitis Medical History (Last Reviewed 02/07/20 @ 14:48 by Elise Lundberg MD) Abdominal pain Onset Date: ~11/14/11 Arthritis Onset Date: Unknown left knee Bunion Onset Date: ~01/01/13 and hammertoe formation, right foot Cough Onset Date: ~02/06/12 Depression Onset Date: ~06/18/13 Deviated nasal septum Onset Date: Unknown Diverticulitis Onset Date: Unknown Fibromyalgia Onset Date: Unknown GERD (gastroesophageal reflux disease) Onset Date: Unknown Hematuria Onset Date: ~01/03/14 History of endometrial biopsy Onset Date: 10/07/19 Hypertension Onset Date: Unknown Low back pain Onset Date: ~03/13/11 chronic Malignant neoplasm of thyroid gland Onset Date: Unknown removal Migraine Onset Date: Unknown Otitis media Onset Date: ~09/10/12 Rib fracture Onset Date: ~08/04/14 Sinusitis Onset Date: ~01/15/12 Small vessel disease Onset Date: ~02/2018 heart- sees dr at [facility] Surgical History: Surgical History (Last Reviewed 02/07/20 @ 14:48 by Elise Lundberg MD) H/O adenoidectomy Onset Date: ~1959 H/O arthroscopic knee surgery Onset Date: Unknown left H/O dilation and curettage Onset Date: ~12/07/08 12/07/2008, 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 No pathologic findings H/O foot surgery Onset Date: ~2011 bilateral bunion repair H/O laparoscopy Onset Date: ~12/07/08 H/O nasal septoplasty Onset Date: ~2005 History of cholecystectomy Onset Date: ~2000 History of colonoscopy Onset Date: ~2012 History of fundoplication Onset Date: ~2000 History of hysteroscopy Onset Date: ~12/07/08 12/07/2008, 11/01/2015 History of repair of hiatal hernia Onset Date: ~2000 History of salpingo-oophorectomy Onset Date: ~12/07/08 left History of tonsillectomy Onset Date: ~1959 History of arthroplasty of left knee Onset Date: ~07/07/18 Left total knee arthroplasty: Dr. Watson Status post hysteroscopy Onset Date: ~11/05/19 - postmenopausal bleeding, thickened endometrium. - benign pathology Family History: Family History (Last Reviewed 02/07/20 @ 14:48 by Elise Lundberg MD) Father Hypertension Cancer throat Mother CVA (cerebral vascular accident) Hypertension Social History: (Last Reviewed 02/07/20 @ 14:48 by Elise Lundberg MD) Social History: adopted: No foster care: No longterm: No Marital status: lives independently: No household members: spouse number of children: 3 caregiver/support person: No current occupational status: other Highest level of school completed/degree received: high school graduate Service: No Tobacco: Smoking Status: Former smoker passive smoking exposure: No second hand exposure: Yes Alcohol: alcohol intake: current alcohol intake frequency: holiday/special occasion Substance Use: substance use type: does not use Dietary Habits: caffeine: Yes Type: carbonated beverages Review Of Systems (GEN) - Review of Systems Generalized/Overall Review: Absent: Chills, Fever EENTM: Present: No Symptoms Reported Respiratory: Present: Cough. Absent: Shortness of Breath Cardiac: Absent: Chest Pain, Palpitations Abdominal: Present: Abdominal Pain, Diarrhea. Absent: Bright blood from rectum Genitourinary: Present: Frequency, Other - She was started on some medication and no longer needs to get up at night to go Musculoskeletal: Present: Other - She has fibromyalgia. No other new complaints Neurological: Present: Headache - She has chronic migraine headaches. No associated neurologic symptoms Skin: Present: No Symptoms Reported Endocrine: Present: No Symptoms Reported Immunizations: IMMUNIZATION HX Immunizations Up to Date Yes History of Influenza Vaccine Yes Hx Pneumococcal Vaccination Yes Allergies/Adverse Reactions: Allergies Allergy/AdvReac Type Severity Reaction Status Date / Time bacitracin zinc Allergy Mild rash Verified 02/07/20 08:09 [From Triple Antibiotic] Troleandomycin [From Tank] Allergy Mild rash Verified 02/07/20 08:09 Metronidazole HCl AdvReac Mild Nausea Verified 02/07/20 08:09 [From Flagyl] Saccharomyces boulardii AdvReac Mild rash Verified 02/07/20 08:09 [From Florastor] Home Medications: HOME MEDICATIONS cholecalciferol (vitamin D3) 50 mcg (2,000 unit) capsule 2,000 unit PO DAILY 11/05/17 [Last Taken Unknown] sumatriptan succinate 100 mg tablet 100 mg PO DAILY PRN #9 tab 11/10/17 [Last Taken Unknown] triamcinolone acetonide 0.5 % topical ointment 1 applic TP DAILY #15 g 05/20/18 [Last Taken Unknown] Estrogens, Conjugated [Premarin] 1 gm VAGINAL .COM 06/17/18 [Last Taken Unknown] Acetaminophen [Tylenol] 1,000 mg PO Q6H PRN tab 07/10/18 [Last Taken Unknown] sennosides 8.6 mg-docusate sodium 50 mg tablet 2 tab PO DAILY PRN tab 01/11/19 [Last Taken Unknown] calcium carbonate 500 mg calcium (1,250 mg) tablet 500 mg PO DAILY 02/22/19 [Last Taken Unknown] traMADol HCL [Ultram] 50 mg PO QID PRN #30 tab 08/06/19 [Last Taken Unknown] albuterol sulfate 90 mcg/actuation aerosol inhaler 2 inh IH Q6H PRN #8.5 g 08/11/19 [Last Taken Unknown] diltiazem HCl 240 mg capsule,24 hr,extended release 240 mg PO DAILY #90 cap 08/23/19 [Last Taken Unknown] fremanezumab-vfrm 225 mg/1.5 mL subcutaneous syringe 225 mg SUBCUT QMONTH 09/21/19 [Last Taken Unknown] misoprostol 100 mcg tablet 100 mcg PO BID #14 tab 10/20/19 [Last Taken 11/04/19 20:00] trazodone 100 mg tablet 200 mg PO HS #60 tab 11/12/19 [Last Taken Unknown] topiramate 100 mg tablet 100 mg PO HS 11/22/19 [Last Taken Unknown] enalapril 10 mg-hydrochlorothiazide 25 mg tablet See Rx Instructions .ROUTE .COMPLEX #90 tab 12/29/19 [Last Taken Unknown] fluconazole 150 mg tablet 150 mg PO Q3D 0 Days #2 tab 01/14/20 [Last Taken Unknown] miconazole nitrate 2 % topical cream 1 applic TP BID #30 g 01/14/20 [Last Taken Unknown] Albuterol Sulfate [Proair Hfa] 2 puff IH Q4H PRN #1 inhaler 01/31/20 [Last Taken Unknown] Amox Tr/Potassium Clavulanate [Augmentin 875-125 Tablet] 875 mg PO Q12H #20 tab 01/31/20 [Last Taken Unknown] solifenacin 5 mg tablet 5 mg PO DAILY 90 Days #90 tab 02/03/20 [Last Taken Unknown] Exam - Exam Vital Signs: Vital Signs - Last Taken Temp 36.5 C 02/07/20 08:07 Pulse 84 02/07/20 14:00 Resp 16 02/07/20 14:00 BP 108/64 02/07/20 14:00 Pulse Ox 94 02/07/20 14:00 Constitutional: Present: Alert, Oriented x3, Cooperative, Well developed, Well nourished, Mild distress, Obese ENT Exam: Present: normal ENT inspection Eye Exam: bilateral eye: normal inspection Neck: Present: full range of motion, normal inspection Back Exam: Present: normal inspection Breasts: Present: Exam deferred Respiratory: Present: lungs clear Cardiovascular/Chest: Present: regular rate, rhythm Abdomen: Present: other - Obese. Soft but markedly tender in the right lower quadrant. 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, no motor/sensory deficits Appearance: Present: appropriate appearance, appropriate insight, neat, no memory impairment Eye contact: Present: cooperative, good eye contact, normal speech Thoughts: Present: normal thought pattern Diagnostic Studies: Abnormal Lab Results 02/07/20 02/07/20 02/07/20 Range/Units 08:15 08:30 08:30 WBC 12.8 H (4.0-10.5) K/mm3 MCH 31.9 H (27-31) pg Immature Gran % (Auto) 2.00 H (0.001-0.429) % Immature Gran # (Auto) 0.25 H (0.000-0.0310) K/mm3 Lymphocytes % 19.2 L (20-51) % Eosinophils % 4.4 H (0.0-3.0) % Neutrophils # 8.6 H (1.3-6.0) K/mm3 Potassium 3.0 L (3.4-4.6) mmol/L Est GFR (Non-Af Amer) 46 L (60-130) mL/min Urine WBC Trace H (0-5) /hpf Calcium Oxalate Crystal Moderate - 2+ H (NONE) /hpf Laboratory Results WBC 12.8 K/mm3 (4.0-10.5) H 02/07/20 08:30 RBC 4.33 M/mm3 (4.2-5.4) 02/07/20 08:30 Hgb 13.8 gm/dL (12.5-16.0) 02/07/20 08:30 Hct 41.4 % (37.0-47.0) 02/07/20 08:30 MCV 95.6 fl (78-100) 02/07/20 08:30 MCH 31.9 pg (27-31) H 02/07/20 08:30 MCHC 33.3 g/dl (32-36) 02/07/20 08:30 RDW 13.8 % (11.5-14.0) 02/07/20 08:30 Plt Count 387 K/mm3 (150-450) 02/07/20 08:30 MPV 8.5 fl (8-12.5) 02/07/20 08:30 Immature Gran % (Auto) 2.00 % (0.001-0.429) H 02/07/20 08:30 Immature Gran # (Auto) 0.25 K/mm3 (0.000-0.0310) H 02/07/20 08:30 Neutrophils % 67.3 % (42-75.0) 02/07/20 08:30 Lymphocytes % 19.2 % (20-51) L 02/07/20 08:30 Monocytes % 6.6 % (0.0-9) 02/07/20 08:30 Eosinophils % 4.4 % (0.0-3.0) H 02/07/20 08:30 Basophils % 0.5 % (0.0-1.0) 02/07/20 08:30 Nucleated RBC % 0.0 k/mm3 (0-1) 02/07/20 08:30 Neutrophils # 8.6 K/mm3 (1.3-6.0) H 02/07/20 08:30 Lymphocytes # 2.46 k/mm3 (1.5-3.5) 02/07/20 08:30 Monocytes # 0.8 k/mm3 (0.0-1.0) 02/07/20 08:30 Eosinophils # 0.6 k/mm3 (0.0-0.7) 02/07/20 08:30 Absolute Basophils 0.1 k/mm3 (0.0-0.1) 02/07/20 08:30 Sodium 138 mmol/L (132-142) 02/07/20 08:30 Plasma Sodium 138 mmol/L (130-142) 02/07/20 08:30 Potassium 3.0 mmol/L (3.4-4.6) L 02/07/20 08:30 Chloride 101 mmol/L (97-106) 02/07/20 08:30 Carbon Dioxide 27.3 mmol/L (24-32.6) 02/07/20 08:30 Anion Gap 12.7 mmol/L (6.8-13.8) 02/07/20 08:30 BUN 17 mg/dL (3-23) 02/07/20 08:30 Creatinine 1.24 mg/dL (0.4-1.4) 02/07/20 08:30 Est GFR (Non-Af Amer) 46 mL/min (60-130) L 02/07/20 08:30 BUN/Creatinine Ratio 13.7 (9.0-21.6) 02/07/20 08:30 Random Glucose 89 mg/dL (70-110) 02/07/20 08:30 Lactic Acid, Venous 0.9 mmol/L (0.4-2.0) 02/07/20 08:30 Calcium 9.5 mg/dL (7.9-10.9) 02/07/20 08:30 Calcium Adj for Albumin 9.6 mg/dL (8.4-10.2) 02/07/20 08:30 Total Bilirubin 0.6 mg/dL (0.0-1.1) 02/07/20 08:30 AST 33 U/L (0-48) 02/07/20 08:30 ALT 45 U/L (19-67) 02/07/20 08:30 Alkaline Phosphatase 56 U/L (50-170) 02/07/20 08:30 Total Protein 7.7 gm/dL (6.2-8.2) 02/07/20 08:30 Albumin 3.5 gm/dl (3.4-5.0) 02/07/20 08:30 Amylase 56 U/L (25-115) 02/07/20 08:30 Lipase 100 U/L (73-393) 02/07/20 08:30 Urine Color Yellow 02/07/20 08:15 Urine Appearance Clear (CLEAR) 02/07/20 08:15 Urine pH 6.0 pH (5.0-7.0) 02/07/20 08:15 Ur Specific [place] 1.020 SP.GR. (1.005-1.010) 02/07/20 08:15 Urine Protein Negative mg/dL (NEGATIVE) 02/07/20 08:15 Urine Glucose (UA) Negative mg/dL (NEGATIVE) 02/07/20 08:15 Urine Ketones Negative mg/dL (NEGATIVE) 02/07/20 08:15 Urine Blood Negative /ul (NEGATIVE) 02/07/20 08:15 Urine Nitrate Negative (NEGATIVE) 02/07/20 08:15 Urine Bilirubin Negative mg/dl (NEGATIVE) 02/07/20 08:15 Urine Urobilinogen Normal EU/dl (NORMAL) 02/07/20 08:15 Ur Leukocyte Esterase Negative /ul (NEGATIVE) 02/07/20 08:15 Urine RBC None seen /hpf (0-5) 02/07/20 08:15 Urine WBC Trace /hpf (0-5) H 02/07/20 08:15 Ur Epithelial Cells 0-5 /hpf (0-5) 02/07/20 08:15 Calcium Oxalate Crystal Moderate - 2+ /hpf (NONE) H 02/07/20 08:15 Urine Bacteria None seen (NONE) 02/07/20 08:15 Urine Culture Comments No culture indicated 02/07/20 08:15 Stl C.difficile Tox A&B Negative (Negative) 02/07/20 08:15 CT scan shows acute appendicitis Assessment/Plan - Assessment/Plan (1) Appendicitis Assessment: Explained the nature of appendicitis and its treatment. The risks and possible complications of appendectomy were explained including the possible need to convert to open operation. After an interactive discussion her questions were answered to her apparent satisfaction and she has given informed consent for appendectomy. SCDs for VTE prophylaxis, chlorhexidine wipes, IV Mefoxin. Covid testing ordered Problem: Acute Qualifiers: Appendicitis type: acute appendicitis Acute appendicitis type: unspecified acute appendicitis type Qualified Code(s): K35.80 - Unspecified acute appendicitis
[2020-02-07] MEDS ORDERED: ISOPROPYL ALCOHOL 480 APPL BTL MC ONE (14:47)
[2020-02-07] MEDS ORDERED: MUPIROCIN 22 APPL TUBE TP ONE (14:47)
[2020-02-07] MEDS ORDERED: BUPIVACAINE HCL/EPINEPHRINE 50 ML VIAL ONE (14:48)
[2020-02-07] MEDS ORDERED: CEFOXITIN SODIUM 2 GM in DEXTROSE 5 % IN WATER 100 ML IV ONE ×2 (14:52)
[2020-02-07] MEDS ORDERED: diphenhydrAMINE HCL 50 MG/ML VIAL IV PRN (15:23)
[2020-02-07] MEDS ORDERED: NALOXONE HCL 0.4 MG/ML VIAL IV PRN (15:23)
[2020-02-07] MEDS ORDERED: PROCHLORPERAZINE EDISYLATE 5 MG/ML VIAL IV PRN (15:23)
[2020-02-07] MEDS ORDERED: HYDROmorphone HCL 2 MG/ML VIAL IV PRN (15:23)
--- NOTE | 2020-02-07 15:23 | ANES ---
Anesthesia Pre Procedure Eval Vitals/Labs: Last Vital Signs Temp 36.5 C 02/07/20 08:07 Pulse 84 02/07/20 14:00 Resp 16 02/07/20 14:00 BP 108/64 02/07/20 14:00 Pulse Ox 94 02/07/20 14:00 HOME MEDICATIONS cholecalciferol (vitamin D3) 50 mcg (2,000 unit) capsule 2,000 unit PO DAILY 11/05/17 [Last Taken Unknown] sumatriptan succinate 100 mg tablet 100 mg PO DAILY PRN #9 tab 11/10/17 [Last Taken Unknown] triamcinolone acetonide 0.5 % topical ointment 1 applic TP DAILY #15 g 05/20/18 [Last Taken Unknown] Estrogens, Conjugated [Premarin] 1 gm VAGINAL .COM 06/17/18 [Last Taken Unknown] Acetaminophen [Tylenol] 1,000 mg PO Q6H PRN tab 07/10/18 [Last Taken Unknown] sennosides 8.6 mg-docusate sodium 50 mg tablet 2 tab PO DAILY PRN tab 01/11/19 [Last Taken Unknown] calcium carbonate 500 mg calcium (1,250 mg) tablet 500 mg PO DAILY 02/22/19 [Last Taken Unknown] traMADol HCL [Ultram] 50 mg PO QID PRN #30 tab 08/06/19 [Last Taken Unknown] albuterol sulfate 90 mcg/actuation aerosol inhaler 2 inh IH Q6H PRN #8.5 g 08/11/19 [Last Taken Unknown] diltiazem HCl 240 mg capsule,24 hr,extended release 240 mg PO DAILY #90 cap 08/23/19 [Last Taken Unknown] fremanezumab-vfrm 225 mg/1.5 mL subcutaneous syringe 225 mg SUBCUT QMONTH 09/21/19 [Last Taken Unknown] misoprostol 100 mcg tablet 100 mcg PO BID #14 tab 10/20/19 [Last Taken 11/04/19 20:00] trazodone 100 mg tablet 200 mg PO HS #60 tab 11/12/19 [Last Taken Unknown] topiramate 100 mg tablet 100 mg PO HS 11/22/19 [Last Taken Unknown] enalapril 10 mg-hydrochlorothiazide 25 mg tablet See Rx Instructions .ROUTE .COMPLEX #90 tab 12/29/19 [Last Taken Unknown] fluconazole 150 mg tablet 150 mg PO Q3D 0 Days #2 tab 01/14/20 [Last Taken Unknown] miconazole nitrate 2 % topical cream 1 applic TP BID #30 g 01/14/20 [Last Taken Unknown] Albuterol Sulfate [Proair Hfa] 2 puff IH Q4H PRN #1 inhaler 01/31/20 [Last Taken Unknown] Amox Tr/Potassium Clavulanate [Augmentin 875-125 Tablet] 875 mg PO Q12H #20 tab 01/31/20 [Last Taken Unknown] solifenacin 5 mg tablet 5 mg PO DAILY 90 Days #90 tab 02/03/20 [Last Taken Unknown] Allergies/Adverse Reactions: Allergies Allergy/AdvReac Type Severity Reaction Status Date / Time bacitracin zinc Allergy Mild rash Verified 02/07/20 08:09 [From Triple Antibiotic] Troleandomycin [From Tank] Allergy Mild rash Verified 02/07/20 08:09 Metronidazole HCl AdvReac Mild Nausea Verified 02/07/20 08:09 [From Flagyl] Saccharomyces boulardii AdvReac Mild rash Verified 02/07/20 08:09 [From Florastor] - Planned Procedure Planned Procedure: Lap Appy Medication List Reviewed:: Yes Allergies Verified: Yes Medical History (Last Reviewed 02/07/20 @ 15:22 by Jamie Arreguin CRNA) Abdominal pain Onset Date: ~11/14/11 Arthritis Onset Date: Unknown left knee Bunion Onset Date: ~01/01/13 and hammertoe formation, right foot Cough Onset Date: ~02/06/12 Depression Onset Date: ~06/18/13 Deviated nasal septum Onset Date: Unknown Diverticulitis Onset Date: Unknown Fibromyalgia Onset Date: Unknown GERD (gastroesophageal reflux disease) Onset Date: Unknown Hematuria Onset Date: ~01/03/14 History of endometrial biopsy Onset Date: 10/07/19 Hypertension Onset Date: Unknown Low back pain Onset Date: ~03/13/11 chronic Malignant neoplasm of thyroid gland Onset Date: Unknown removal Migraine Onset Date: Unknown Otitis media Onset Date: ~09/10/12 Rib fracture Onset Date: ~08/04/14 Sinusitis Onset Date: ~01/15/12 Small vessel disease Onset Date: ~02/2018 heart- sees at [facility] Surgical History (Last Reviewed 02/07/20 @ 15:23 by Jamie Arreguin CRNA) H/O adenoidectomy Onset Date: ~1959 H/O arthroscopic knee surgery Onset Date: Unknown left H/O dilation and curettage Onset Date: ~12/07/08 12/07/2008, 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 No pathologic findings H/O foot surgery Onset Date: ~2011 bilateral bunion repair H/O laparoscopy Onset Date: ~12/07/08 H/O nasal septoplasty Onset Date: ~2005 History of cholecystectomy Onset Date: ~2000 History of colonoscopy Onset Date: ~2012 History of fundoplication Onset Date: ~2000 History of hysteroscopy Onset Date: ~12/07/08 12/07/2008, 11/01/2015 History of repair of hiatal hernia Onset Date: ~2000 History of salpingo-oophorectomy Onset Date: ~12/07/08 left History of tonsillectomy Onset Date: ~1959 History of arthroplasty of left knee Onset Date: ~07/07/18 Left total knee arthroplasty: Dr. Watson Status post hysteroscopy Onset Date: ~11/05/19 - postmenopausal bleeding, thickened endometrium. - benign pathology Family History (Last Reviewed 02/07/20 @ 15:23 by Jamie Arreguin CRNA) Father Hypertension Cancer throat Mother CVA (cerebral vascular accident) Hypertension - Family Anesthesia History Family History:: no untoward family reactions to anesthesia, no familial bleeding tendencies, no family history of clotting disorders, no family history of premature - Airway/Neck/Teeth Within Normal Limits:: Yes Denture Type: Full upper, Full lower Mallampatti Score: 2 Thyromental (T-M) distance: > 6 cm Mandibulo Hyoid distance: > 3 cm - Respiratory Respiratory Physical: decreased breath sounds Smoking Status: Former smoker Discussed smoking cessation including day of surgery: No Sleep Apnea currently treated: No - Cardiovascular Tolerate Activity: Fair Heart Sounds: S1 & S2, Regular - Gastrointestinal NPO since: mn - Anesthesia Assessment and Plan ASA Class: PS, III, E Anesthesia Type Plan: General ET
[2020-02-07] MEDS ORDERED: NEOSTIGMINE METHYLSULFATE 1 MG/ML VIAL ONE (15:29)
[2020-02-07] MEDS ORDERED: LIDOCAINE HCL 20 ML VIAL ONE (15:29)
[2020-02-07] MEDS ORDERED: ONDANSETRON HCL/PF 2 MG/ML VIAL ONE (15:29)
[2020-02-07] MEDS ORDERED: fentaNYL CITRATE/PF 50 MCG/ML AMPUL ONE (15:29)
[2020-02-07] MEDS ORDERED: SUCCINYLCHOLINE CHLORIDE 20 MG/ML VIAL ONE (15:30)
[2020-02-07] MEDS ORDERED: PROPOFOL VIAL IV ONE (15:30)
[2020-02-07] MEDS ORDERED: ROCURONIUM BROMIDE 10 MG/ML VIAL ONE (15:30)
[2020-02-07] MEDS ORDERED: GLYCOPYRROLATE 0.2 MG/ML VIAL ONE (15:30)
[2020-02-07] MEDS ORDERED: HYDROmorphone HCL 2 MG/ML VIAL ONE (17:15)
[2020-02-07] MEDS ORDERED: HYDROmorphone HCL 1 MG/ML DISP.SYRIN IV PRN (19:07)
[2020-02-07] MEDS ORDERED: ONDANSETRON HCL/PF 2 MG/ML VIAL IV PRN (19:07)
--- NOTE | 2020-02-07 19:11 | ANES ---
Post Anesthesia Discharge - Transfer of Care Transfer of Care handoff given to nurse: Yes - Discharge from PACU Discharge from PACU when meets criteria: Yes - Discharge to ASU Discharge to ASU-no complications/pt stable: Yes
--- NOTE | 2020-02-07 19:27 | ANES ---
Post Anesthesia Assessment - Vital Signs Vitals: Last Vital Signs Temp 36.2 C 02/07/20 19:25 Pulse 70 02/07/20 19:25 Resp 12 02/07/20 19:25 BP 134/56 02/07/20 19:25 Pulse Ox 97 02/07/20 19:25 Airway Patency: Normal - Mental Status Level Of Consciousness: Awake - Pain Level Pain Score: 7 - N/V Assessment Nausea/Vomiting Presence: None Dehydration:: No
--- NOTE | 2020-02-07 19:40 | OR ---
Operative Report - Dictated Report Narrative: Date of operation 02/07/2020 Preoperative diagnosis: Acute appendicitis Postoperative diagnosis: Acute appendicitis with rupture Operation: Laparoscopic converted to open appendectomy Surgeon: GONZÁLEZ Lundberg MD Anesthesia: Gen. yovany Arreguin CRNA Indications for procedure: The patient is a 64-year-old female who presented to the emergency room with a 1 week history of diarrhea and abdominal discomfort. She was found to have right lower quadrant tenderness and an elevated white blood cell count. CT scan revealed acute appendicitis Findings: Chronically inflamed appendix with appendicolith and perforation near the base, requiring open operation to secure the appendiceal stump Narrative of procedure: The patient was identified preoperatively, and prior to the administration of anesthetic a multidisciplinary timeout was observed. The patient was placed supine, SCDs were applied, and 2 g of IV Mefoxin administered. Rapid sequence endotracheal intubation was performed and general anesthetic was administered. The patient's abdomen was prepped with Betadine solution, and a generous operating field outlined with 4 sterile towels. The remainder the patient was covered with a sterile disposable drape. A transverse infraumbilical skin incision was made, and dissection was carried along the umbilical stalk until the fascia of the linea alba was encountered. This was incised. The peritoneum was elevated and incised to allow entry into the abdomen under direct vision. A Hussan cannula was placed and the abdomen insufflated with CO2. The laparoscopic camera was introduced and the abdomen briefly explored. Those portions of the liver, stomach, small and large intestine visualized appeared normal. The appendix was not immediately visualized. Next under direct vision, 2 additional working ports were inserted through separate skin incisions, one in the suprapubic area one in the left lower quadrant. The apex of the cecum was grasped and retracted cephalad. The terminal ileum could be identified and swept medially revealing the tip of an inflamed appendix. The appendix was found to be densely adherent to the lateral peritoneal wall and a section of the terminal ileum. The lateral peritoneal attachments were then divided allowing mobilization of the cecum and the tip of the appendix and mesoappendix. The base of the inflammatory mass was then addressed. This could be dissected bluntly from the terminal ileum. Inflammation at the base contained a large appendicolith. This was seen to be at the base of the appendix which was open flush to the cecum. The induration in the area precluded adequate mobilization for secure closure of the stump. Accordingly preparation was made for an open operation. A point was chosen for the incision by palpation and marked on the skin. A transverse right lower quadrant skin incision was made at the chosen point. Dissection was carried through subcutaneous tissue with electrocautery until the fascia of the oblique musculature was encountered. The oblique muscles were divided in the direction of their fibers down to the peritoneum. This was opened under direct vision. Digital palpation revealed the inflammatory mass which could then be delivered onto the anterior abdominal wall for direct inspection. The mesoappendix was transected with a PHAN stapling device. The appendix was removed with a PHAN stapling device. The base of the appendix was then securely closed with a PHAN stapler. The staple line was then inverted and secured with interrupted serosal sutures of 3-0 GI silk. The area was inspected for hemostasis. The closure was seen to be gas and liquid tight. The cecum was then returned to the abdomen. The peritoneum and innermost fascia was closed with antibiotic containing 0 Vicryl. The additional fascial layers and muscles were closed in layers of interrupted antibiotic-containing 0 Vicryl. The subcutaneous tissue was irrigated with Betadine. It was then irrigated clean with saline. Several sutures of 2-0 chromic were used to loosely approximate the deepest portion of the fat over the fascial closure. The superficial subcutaneous wound was packed with 1/2 inch iodoform gauze. The laparoscopic camera was then briefly reintroduced. The appendectomy site was seen to be hemostatic and the closure was secure. The pneumoperitoneum was allowed to escape. After receiving a correct sponge needle instrument count attention was turned to closing the abdomen. The fascia at the umbilicus was approximated with interrupted sutures of 0 Vicryl. The subcutaneous tissue was irrigated with Betadine and saline. space was obliterated with an interrupted suture of 3-0 chromic. Skin incisions were closed with interrupted vertical mattress sutures of 4-0 nylon. The operative sites were washed and dried. Dressings of a large Band-Aids were applied to the small port sites. The umbilical incision was dressed with a small Mepilex border. The right lower quadrant incision was dressed with folded 4 x 4's, Mepilex border, and Medipore tape. The operative procedure was terminated at this point. The patient tolerated the anesthetic and procedure well without complication. There was no measurable blood loss. Appendix and adjacent tissues were submitted to pathology. 0.5% Marcaine with epinephrine was used for local anesthetic infiltration. The patient was transferred to the recovery room awake, extubated, and in stable condition. Reviewed and electronically signed
[2020-02-07] MEDS: PIPERACILLIN SODIUM/TAZOBACTAM 3.375 GM in DEXTROSE 5 % IN WATER 100 ML IV SCH ×2 (20:43)
[2020-02-07] MEDS: RINGER'S SOLUTION,LACTATED 1,000 ML IV PRN (21:28)
[2020-02-08] MEDS: HYDROcodone/ACETAMINOPHEN 1 EACH TABLET PO PRN ×3 (02:04→16:06)
[2020-02-08] MEDS: PIPERACILLIN SODIUM/TAZOBACTAM 3.375 GM in DEXTROSE 5 % IN WATER 100 ML IV SCH ×4 (04:22→11:22)
[2020-02-08] MEDS: RINGER'S SOLUTION,LACTATED 1,000 ML IV PRN ×3 (04:29→21:21)
--- NOTE | 2020-02-08 07:06 | PN ---
Subjective - Date and Time Seen Date: 02/08/20 Time: 07:05 - Third visit Subjective Narrative: She had an attempted laparoscopic converted to open appendectomy last night. She was found to have appendicitis with severe localized peritonitis. The stump of the appendix could not be closed laparoscopically. Objective Objective Narrative: Her vital signs have remained normal. He complains "my bronchitis is back", although her SaO2 on room air is 100%. This morning she stated she had a lot more abdominal pain, however Toradol relieved this later and she walked in the [place]. She was able to bend over and put on her own shoes. She has tolerated liquids. She did pass gas earlier today and states she would like some real food She been seen by RENATA Baptiste about arranging for an outpatient wound VAC. Her wound appears clean - Review of Systems Generalized/Overall Review: Denies: Chills, Fever EENTM: Reports: No Symptoms Reported Respiratory: Reports: Cough. Denies: Shortness of Breath, Wheezing Cardiac: Denies: Chest Pain, Palpitations Abdominal: Reports: Abdominal Pain - Incisional discomfort Genitourinary Symptoms: Reports: Other - She has voided several times. Denies: Burning, Itching Musculoskeletal Complaints: Reports: Other - She has chronic fibromyalgia Neurological: Reports: No Symptoms Reported Skin: Reports: No Symptoms Reported - Vitals Vitals: Last Vital Signs Temp 37.4 C 02/08/20 06:29 Pulse 85 02/08/20 06:29 Resp 16 02/08/20 06:29 BP 94/51 02/08/20 06:29 Pulse Ox 96 02/08/20 06:29 - Abnormal Lab Findings Abnormal Lab Findings: Abnormal Lab Results 02/07/20 02/07/20 02/07/20 Range/Units 08:15 08:30 08:30 WBC 12.8 H (4.0-10.5) K/mm3 MCH 31.9 H (27-31) pg Immature Gran % (Auto) 2.00 H (0.001-0.429) % Immature Gran # (Auto) 0.25 H (0.000-0.0310) K/mm3 Lymphocytes % 19.2 L (20-51) % Eosinophils % 4.4 H (0.0-3.0) % Neutrophils # 8.6 H (1.3-6.0) K/mm3 Potassium 3.0 L (3.4-4.6) mmol/L Est GFR (Non-Af Amer) 46 L (60-130) mL/min Urine WBC Trace H (0-5) /hpf Calcium Oxalate Crystal Moderate - 2+ H (NONE) /hpf - Exam Constitutional: Present: Alert, Oriented x3, Cooperative, Well developed, Well nourished, No distress ENT Exam: Present: normal ENT inspection Neck: Present: full range of motion, normal inspection Breasts: Present: Exam deferred Respiratory: Present: normal breath sounds Cardiovascular/Chest: Present: regular rate, rhythm Abdomen: Present: other - Her abdomen is soft. She does have some tenderness however there is no guarding. The umbilical incision and the small port site incisions are clean. The wound in the right lower quadrant appears healthy. Minimal drainage. 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 Incentive spirometry. Will advance diet. - Problems/Diagnosis (1) Appendicitis Problem: Acute Qualifiers: Appendicitis type: acute appendicitis Acute appendicitis type: with localized peritonitis Qualified Code(s): K35.80 - Unspecified acute appendicitis
--- NOTE | 2020-02-08 11:16 | CONS ---
[facility] - General Date of Service: 02/08/20 Source: patient - History of Present Illness Initial Comments: Patient is a 64-year-old female, recently admitted to the hospital regarding appendicitis. On 02/07/2020, she presented to the [facility] emergency department for evaluation of abdominal pain, diarrhea and fever. An abdominal CT indicated appendicitis. Dr. Lundberg was consulted to perform the appendectomy, and at that time noted the appendicitis with rupture. It then became an open procedure. The patient has an open wound to the right lower quadrant of her abdomen. She states her pain is well controlled with medications at this time. Her medical h istory is notable for diverticulitis, fibromyalgia, GERD, hypertension and thyroid removal. Allergies/Adverse Reactions: Allergies bacitracin zinc [From Triple Antibiotic] Allergy (Mild, Verified 02/07/20 08:09) rash Troleandomycin [From Tank] Allergy (Mild, Verified 02/07/20 08:09) rash Metronidazole HCl [From Flagyl] Adverse Reaction (Mild, Verified 02/07/20 08:09) Nausea Saccharomyces boulardii [From Florastor] Adverse Reaction (Mild, Verified 02/07/20 08:09) rash Can tolerate yogurt or bacid. Home Medications: Home Medications Medication Instructions Recorded Last Taken cholecalciferol (vitamin D3) 50 2,000 unit PO DAILY 11/05/17 Unknown mcg (2,000 unit) capsule sumatriptan succinate 100 mg tablet 100 mg PO DAILY PRN #9 tab 11/10/17 Unknown triamcinolone acetonide 0.5 % 1 applic TP DAILY #15 g 05/20/18 Unknown topical ointment Estrogens, Conjugated [Premarin] 1 gm VAGINAL .COM 06/17/18 Unknown Acetaminophen [Tylenol] 1,000 mg PO Q6H PRN tab 07/10/18 Unknown sennosides 8.6 mg-docusate sodium 2 tab PO DAILY PRN tab 01/11/19 Unknown 50 mg tablet calcium carbonate 500 mg calcium 500 mg PO DAILY 02/22/19 Unknown (1,250 mg) tablet diltiazem HCl 240 mg capsule,24 240 mg PO DAILY #90 cap 08/23/19 Unknown hr,extended release fremanezumab-vfrm 225 mg/1.5 mL 225 mg SUBCUT QMONTH 09/21/19 02/04/20 subcutaneous syringe trazodone 100 mg tablet 200 mg PO HS #60 tab 11/12/19 Unknown topiramate 100 mg tablet 100 mg PO HS 11/22/19 Unknown Amox Tr/Potassium Clavulanate 875 mg PO Q12H #20 tab 01/31/20 Unknown [Augmentin 875-125 Tablet] Enalapril/Hydrochlorothiazide 1 ea PO DAILY 02/08/20 Unknown [Enalapril-Hctz 10-25 mg Tablet] Solifenacin Succinate 5 mg PO HS 02/08/20 Unknown Procedures Bunionectomy with soft tissue correction and osteotomy of the first metatarsal (01/08/13) Closed [percutaneous] [needle] biopsy of thyroid gland (01/08/07) D & C NEC (12/07/08) Excision of semilunar cartilage of knee (06/06/05) Excision or correction of bunionette (01/08/13) Extraction of Endometrium, Via Natural or Artificial Opening Endoscopic, Diagnostic (11/01/15) LAPAROSCOP UNILAT SALPINGO-OOPHORECTOMY (12/07/08) Other cystoscopy (01/26/14) Other endoscopy of small intestine (05/20/00) Other repair of knee (06/06/05) Other turbinectomy (05/23/05) Repair of hammer toe (01/08/13) Replacement of Left Knee Joint with Synthetic Substitute, Cemented, Open Approach (07/07/18) Transfusion of packed cells (05/20/00) Medications - Medications Current Medications: Current Medications Hydrocodone Bitart/Acetaminophen (Hydrocodone/Acetaminophen 1 Each Tablet) 2 each PO Q6H PRN PRN Reason: Moderate Pain (pain scale 4-6) Stop: 03/08/20 19:08 Last Admin: 02/08/20 08:11 Dose: 2 each Documented by: Lactated Ringer's (Lactated Ringers) 1,000 mls @ 125 mls/hr IV .Q8H PRN PRN Reason: HYDRATION Stop: 03/08/20 19:08 Last Admin: 02/08/20 04:29 Dose: 125 mls/hr Documented by: Piperacillin Sod/Tazobactam (Sod 3.375 gm/ Dextrose/Water) 100 mls @ 25 mls/hr IV Q8H LAUREN; Protocol Stop: 02/08/20 15:14 Last Infusion: 02/08/20 08:22 Dose: Infused Documented by: Review of Systems - Review of Systems Generalized/Overall Review: Absent: Chills, Fever EENTM: Absent: Nose Congestion Respiratory: Absent: Cough Cardiac: Absent: Chest Pain Abdominal: Present: Abdominal Pain. Absent: Nausea, Vomiting Musculoskeletal: Present: Muscle Pain Neurological: Absent: Headache Skin: Present: Lesions Physical Examination - Exam Vital Signs: Vital Signs - Last Taken Temp 37.4 C 02/08/20 06:29 Pulse 85 02/08/20 06:29 Resp 16 02/08/20 06:29 BP 94/51 02/08/20 06:29 Pulse Ox 96 02/08/20 06:29 O2 Oxygen Delivery Method Room Air Constitutional: Present: Alert, No distress ENT Exam: Present: hearing grossly normal Respiratory: Present: no respiratory distress Cardiovascular/Chest: Present: regular rate, rhythm Abdomen: Present: soft, tender, other - there is a surgical wound measuring 5.0cm x 1.0cm x 1.5cm. moderate serous drainage. no erythema or induration. large amount of red granulation tissue Skin Exam: Present: warm/dry - Assessments/Findings (1) Appendicitis Diagnosis(s): The patient would benefit from a wound VAC, for healing of his wound. We will start the authorization process for an outpatient VAC. It appears she will have a short stay as an inpatient, will continue with the packing while she is here. Problem: Acute Qualifiers: Appendicitis type: acute appendicitis Acute appendicitis type: unspecified acute appendicitis type Qualified Code(s): K35.80 - Unspecified acute appendicitis
[2020-02-08] MEDS: ENALAPRIL MALEATE 5 MG TABLET PO SCH (13:21)
[2020-02-08] MEDS: HYDROCHLOROTHIAZIDE 25 MG TABLET PO SCH (13:22)
[2020-02-08] MEDS: KETOROLAC TROMETHAMINE 15 MG/ML VIAL IV PRN ×2 (13:22→20:08)
[2020-02-09] MEDS: HYDROcodone/ACETAMINOPHEN 1 EACH TABLET PO PRN ×2 (00:56→07:43)
[2020-02-09] MEDS: KETOROLAC TROMETHAMINE 15 MG/ML VIAL IV PRN (04:26)
[2020-02-09] MEDS: RINGER'S SOLUTION,LACTATED 1,000 ML IV PRN (05:28)
[2020-02-09 06:39] LABS: Hematocrit 34.4 % (37.0-47.0); Hemoglobin 11.2 gm/dL (12.5-16.0); Mean Cell Volume 97.2 fl (78-100); Mean Corpuscular Hemoglobin 31.6 pg (27-31); Mean Corpuscular Hgb Conc 32.6 g/dl (32-36); Mean Platelet Volume 8.9 fl (8-12.5); Neutrophil # 12.9 K/mm3 (1.3-6.0); Neutrophil % 80.8 % (42-75.0); Platelet Count 280 K/mm3 (150-450); Red Blood Count 3.54 M/mm3 (4.2-5.4); White Blood Count 15.9 K/mm3 (4.0-10.5)
[2020-02-09] MEDS ORDERED: DILTIAZEM HCL 240 MG CAP.SR.24H PO SCH (09:00)
[2020-02-09] MEDS: ENALAPRIL MALEATE 5 MG TABLET PO SCH (09:57)
[2020-02-09] MEDS: HYDROCHLOROTHIAZIDE 25 MG TABLET PO SCH (09:57)
--- NOTE | 2020-02-09 11:23 | DS ---
(1) Appendicitis Problem: Acute Qualifiers: Appendicitis type: acute appendicitis Acute appendicitis type: with localized peritonitis Appendicitis gangrene presence: with gangrene Appendicitis perforation presence: with perforation Appendicitis abscess presence: without abscess Qualified Code(s): K35.32 - Acute appendicitis with perforation and localized peritonitis, without abscess Date of Discharge:: 02/09/20 Hospital Course: She was taken to the operating room and underwent attempted laparoscopicconverted to open appendectomy. There was extensive inflammation with perforation of the base of the appendix and localized peritonitis without abscess. The procedure was converted to open due to inability to adequately c ure the stump laparoscopically. Postoperatively she was admitted to acute care maintained on IV Zosyn with IV fluids. SCDs for VTE prophylaxis. Her vital signs remained normal. Her activity level increased. She was begun on liquids and then advance to a regular diet after she evidenced return of bowel function. Her right lower quadrant incision was packed with half-inch iodoform gauze. A consult was obtained from the wound center to arrange for an outpatient wound VAC. By the day of discharge she was afebrile with normal vital signs. Tolerating a regular diet and up with minimal assistance. Her wounds appear to be clean and healing. She was discharged home with instructions not to lift. She is to resume her usual medications as listed in the H&P. She is to keep her wounds dry and covered. The wound center will contact her regarding wound VAC placement. She has phone numbers to call for questions or concerns. A return office appointment was made for 1 week. A prescription for Percocet 5/325 mg has been transmitted from the clinic side--- transmission failure on the acute side Procedures Performed: see notes below Results and Findings: Lab Pending Results 02/07/20 08:15: Urine Color Yellow, Urine Appearance Clear, Urine pH 6.0, Ur Specific [place] 1.020, Urine Protein Negative, Urine Glucose (UA) Negative, Urine Ketones Negative, Urine Blood Negative, Urine Nitrate Negative, Urine Bilirubin Negative, Urine Urobilinogen Normal, Ur Leukocyte Esterase Negative, Urine RBC None seen, Urine WBC Trace H, Ur Epithelial Cells 0-5, Calcium Oxalate Crystal Moderate - 2+ H, Urine Bacteria None seen, Urine Culture Comments No culture indicated 02/07/20 08:15: Stl C.difficile Tox A&B Negative 02/07/20 08:30: WBC 12.8 H, RBC 4.33, Hgb 13.8, Hct 41.4, MCV 95.6, MCH 31.9 H, MCHC 33.3, RDW 13.8, Plt Count 387, MPV 8.5, Immature Gran % (Auto) 2.00 H, Immature Gran # (Auto) 0.25 H, Neutrophils % 67.3, Lymphocytes % 19.2 L, Monocytes % 6.6, Eosinophils % 4.4 H, Basophils % 0.5, Nucleated RBC % 0.0, Neutrophils # 8.6 H, Lymphocytes # 2.46, Monocytes # 0.8, Eosinophils # 0.6, Absolute Basophils 0.1 02/07/20 08:30: Sodium 138, Plasma Sodium 138, Potassium 3.0 L, Chloride 101, Carbon Dioxide 27.3, Anion Gap 12.7, BUN 17, Creatinine 1.24, Est GFR (Non-Af Amer) 46 L, BUN/Creatinine Ratio 13.7, Random Glucose 89, Calcium 9.5, Calcium Adj for Albumin 9.6, Total Bilirubin 0.6, AST 33, ALT 45, Alkaline Phosphatase 56, Total Protein 7.7, Albumin 3.5, Amylase 56, Lipase 100 02/07/20 08:30: Lactic Acid, Venous 0.9 02/07/20 14:00: SARS-CoV-2 (PCR) Not detected 02/09/20 06:15: WBC 15.9 H D, RBC 3.54 L, Hgb 11.2 L, Hct 34.4 L, MCV 97.2, MCH 31.6 H, MCHC 32.6, RDW 14.0, Plt Count 280, MPV 8.9, Immature Gran % (Auto) 0.90 H, Immature Gran # (Auto) 0.15 H, Neutrophils % 80.8 H, Lymphocytes % 8.7 L, Monocytes % 5.6, Eosinophils % 3.7 H, Basophils % 0.3, Nucleated RBC % 0.0, Neutrophils # 12.9 H, Lymphocytes # 1.38 L, Monocytes # 0.9, Eosinophils # 0.6, Absolute Basophils 0.0 Discharge Location: Home Disposition: Home self-care Condition: Good Discharge Activity: Activity as tolerated, No Lifting Discharge Diet: General/regular food Referrals: Carmela Dyson MD [Primary Care Provider] - Consultation Done:: RENATA Baptiste regarding outpatient wound VAC application Problem Oriented Discharge Instructions to Patient/Family: Laparoscopic Appendectomy, Adult, Care After, [id number] Complete Home Medications List: Complete Home Medication List: cholecalciferol (vitamin D3) 50 mcg (2,000 unit) capsule 2,000 unit PO DAILY 11/05/17 sumatriptan succinate 100 mg tablet 100 mg PO DAILY PRN #9 tab 11/10/17 triamcinolone acetonide 0.5 % topical ointment 1 applic TP DAILY #15 g 05/20/18 Estrogens, Conjugated [Premarin] 1 gm VAGINAL .COM 06/17/18 Acetaminophen [Tylenol] 1,000 mg PO Q6H PRN tab 07/10/18 sennosides 8.6 mg-docusate sodium 50 mg tablet 2 tab PO DAILY PRN tab 01/11/19 calcium carbonate 500 mg calcium (1,250 mg) tablet 500 mg PO DAILY 02/22/19 diltiazem HCl 240 mg capsule,24 hr,extended release 240 mg PO DAILY #90 cap 08/23/19 fremanezumab-vfrm 225 mg/1.5 mL subcutaneous syringe 225 mg SUBCUT QMONTH 09/21/19 trazodone 100 mg tablet 200 mg PO HS #60 tab 11/12/19 topiramate 100 mg tablet 100 mg PO HS 11/22/19 Amox Tr/Potassium Clavulanate [Augmentin 875-125 Tablet] 875 mg PO Q12H #20 tab 01/31/20 Enalapril/Hydrochlorothiazide [Enalapril-Hctz 10-25 mg Tablet] 1 ea PO DAILY 02/08/20 Solifenacin Succinate 5 mg PO HS 02/08/20 Forms: Patient Portal Registration
[2020-02-09 13:26] VITALS: BP 110/65
== END 2020-02-09 13:20 | disposition home or self-care (01) | DRG 340 ==
LOC: ER 08:00 → SUR 14:41 → MS 14:41 → SUR 15:48
PROVIDERS: ADMIT Surgery; ATTEND Surgery